=== PATIENT | female | born 1945 | race African-American/Black ===

== ENCOUNTER 2018-09-17 18:20 | Emergency (ER) | payer MEDICARE ==
[~2018-09-17] VITALS: Ht 152.4 cm; Wt 64.0 kg
[2018-09-17] MEDS ORDERED: CALC-1042 PO (19:12)
[2018-09-17] MEDS ORDERED: SIMV5TAB53 PO (19:12)
[2018-09-17] MEDS ORDERED: FURO20TA4 PO (19:12)
[2018-09-17 23:05] VITALS: BP 133/73
== END 2018-09-17 23:08 | disposition home or self-care (01) ==
LOC: ER 20:11
DX: R51 Headache (principal); M25.562 Pain in left knee; E78.00 Pure hypercholesterolemia, unspecified; I10 Essential (primary) hypertension; Z90.710 Acquired absence of both cervix and uterus; Z98.49 Cataract extraction status, unspecified eye; Z90.5 Acquired absence of kidney; W03.XXXA Other fall on same level due to collision with another person, initial encounter; Y93.89 Activity, other specified; Y92.218 Other school as the place of occurrence of the external cause
CPT/HCPCS: 99284